=== PATIENT | male | born 1985 | race Caucasian/White ===

== ENCOUNTER 2020-06-13 17:01 | Emergency (ER) | payer OTHER ==
[2020-06-13 17:19] VITALS: BP 116/69; PULSE 74; TEMP 98.3; BMI 26.6
[2020-06-13] MEDS ORDERED: OCULAR LUBRICANT OPHTHALMIC OINTMENT 7 GM TUBE OU PRN (18:04)
[2020-06-13] MEDS ORDERED: valACYclovir HCL 1000 MG TABLET PO ONE (18:05)
[2020-06-13] MEDS ORDERED: predniSONE 20 MG TABLET (UD) PO ONE (18:05)
[2020-06-13] MEDS ORDERED: valACYclovir HCL 500 MG TABLET (FP) ONE (18:18)
[2020-06-13] MEDS ORDERED: predniSONE 20 MG TABLET (UD) ONE (18:18)
[2020-06-18 16:12] LABS: E.chaff HME IgG Negative (Neg:<1:64)
[2020-06-19 17:07] LABS: BABESIA MICROTI ANTIBODY IGG <1:10 (Neg:<1:10); BABESIA MICROTI ANTIBODY IGM 1:20 (Neg:<1:10)
== END 2020-06-13 18:54 | disposition home or self-care (01) ==
LOC: JER 17:01
DX: G51.0 Bell's palsy (principal)
CPT/HCPCS: 36415; 86618; 86666; 86753; 99283-25